=== PATIENT | male | born 1945 | race Caucasian/White ===

== ENCOUNTER 2020-03-30 10:37 | Emergency (ER) | payer OTHER ==
--- NOTE | 2020-03-30 11:40 | RAD REPORT ---
EXAM DESCRIPTION: Chris Single View03/30/2020 11:10 am CLINICAL HISTORY: cough COMPARISON: 2018 FINDINGS: Previously described left upper lobe nodule is not visualized on the current examination The lungs appear clear of acute infiltrate. The heart is normal size IMPRESSION: No acute abnormalities displayed
[2020-03-30 12:18] LABS: Absolute Lymphocytes (CBC) 0.3 K/uL (0.7-4.9); Basophils % 0.2 % (0-1.3); Hematocrit 38.3 % (39.6-49.0); MPV 6.6 fL (7.6-11.3); RBC Red Blood Cell Count 4.35 M/uL (4.33-5.43)
[2020-03-30 12:38] LABS: Urine Blood TRACE (NEG); Urine Glucose 3+ (NEG); Urine Protein NEGATIVE (NEG); Urine Specific Gravity 1.015 (1.005-1.030)
[2020-03-30 12:38] LABS: ALT/SGPT 28 U/L (12-78); AST/SGOT 24 U/L (15-37); Albumin 3.6 g/dL (3.4-5.0); Alkaline Phosphatase 94 U/L (45-117); BUN Blood Urea Nitrogen 15 mg/dL (7-18); Bicarbonate 26 mmol/L (21-32); Bilirubin Direct 0.2 mg/dL (0-0.2); Bilirubin Total 0.7 mg/dL (0.2-1.0); Glucose Level 233 mg/dL (74-106); Magnesium 1.9 mg/dL (1.8-2.4); NT PRO-BNP 212 pg/mL (<125); Potassium 3.9 mmol/L (3.5-5.1); Protein, Total 6.8 g/dL (6.4-8.2); Sodium Level 131 mmol/L (136-145); Troponin (Emerg Dept Use Only) < 0.02 ng/mL (0.0-0.045)
[2020-03-30 12:39] LABS: Blood Morphology Comment NOT SEEN (NOT SEEN); Platelet Estimate ADEQ
--- NOTE | 2020-03-30 13:47 | RAD REPORT ---
EXAM DESCRIPTION: CT - Chest For Pe Angio - 03/30/2020 1:23 pm CLINICAL HISTORY: Chest pain COMPARISON: 2019 TECHNIQUE: Dynamically enhanced axial 3 mm thick images of the chest were obtained during administra tion of <100> mL Isovue 370 IV contrast. Coronal and oblique reconstruction images were generated and reviewed. Exam utilizes a protocol for optimal evaluation of pulmonary arterial tree. Maximum intensity projections 3D imaging was utilized All CT scans are performed using dose optimization technique as appropriate and may include automated exposure control or mA/KV adjustment according to patient size. FINDINGS: A pulmonary embolus is not seen. A thoracic aortic aneurysm is not noted. A pleural effusion is not seen. A pericardial effusion is not seen. A lung consolidation is not present.The left pulmonary nodule has resolved Cholelithiasis without evidence cholecystitis IMPRESSION: Negative for a pulmonary embolism.
--- NOTE | 2020-03-30 13:58 | ER ---
Nurse's Notes [facility] Name: Tomer Thornton Age: 74 yrs Sex: Male : 1945 Arrival Date: 03/30/2020 Time: 10:47 Bed 8 Private MD: Diagnosis: Fever, unspecified;Nausea Presentation: 03/30 11:03 Chief complaint: Patient states: Fever of 100.1 last night, body aches and slight ph nausea, denies cough, SOB or diarrhea, reports that temp this morning was 99.7. Coronavirus screen: Patient denies a cough. Patient denies shortness of breath or difficulty breathing. Patient reports a measured and/or subjective temperature greater than 100.4F. Patient denies travel on a cruise ship or to a country the [facility] currently lists as an affected area. Patient denies contact with known and/or suspected case of COVID-19. Patient instructed to continue to wear a mask when interacting with others. Patient moved to private room, placed in contact and droplet isolation with eye protection until further assessment. Ebola Screen: No symptoms or risks identified at this time. Initial Sepsis Screen: Does the patient meet any 2 criteria? No. Patient's initial sepsis screen is negative. Does the patient have a suspected source of infection? No. Patient's initial sepsis screen is negative. Risk Assessment: Do you want to hurt yourself or someone else? Patient reports no desire to harm self or others. Onset of symptoms was March 30, 2020 at 11:05. 11:03 Method Of Arrival: Ambulatory ph 11:03 Acuity: LUDIN 4 ph Historical: - Allergies: 11:08 No Known Allergies; ph - Home Meds: 11:08 Oxybutynin Chloride Oral [Active]; amlodipine oral [Active]; Omeprazole Oral [Active]; ph atorvastatin oral oral [Active]; - PMHx: 11:08 Hypertension; Hyperlipidemia; GERD; cancer, prostate; lymphoma; ph - PSHx: 11:08 prostate; ph - Immunization history:: Adult Immunizations unknown. - Social history:: Smoking status: Patient denies any tobacco usage or history of. - Family history:: not pertinent. Screenin:09 Abuse screen: Denies threats or abuse. Denies injuries from another. Nutritional ph screening: No deficits noted. Tuberculosis screening: No symptoms or risk factors identified. Fall Risk None identified. Assessment: 11:09 General: Appears in no apparent distress. comfortable, well groomed, Behavior is calm, ph cooperative, appropriate for age, Reports fever for 0-12 hours. Pain: Complains of pain in "body aches". Neuro: Level of Consciousness is awake, alert, obeys commands, Oriented to person, place, time, situation. Cardiovascular: Capillary refill < 3 seconds in bilateral fingers Patient's skin is warm and dry. Respiratory: Airway is patent Respiratory effort is even, unlabored, Respiratory pattern is regular, symmetrical, Denies cough, shortness of breath. GI: Reports nausea, Patient currently denies constipation, cramping, vomiting. Derm: Skin is intact, is healthy with good turgor, Skin is pink, warm \\T\\ dry. Musculoskeletal: Circulation, motion, and sensation intact. Range of motion: intact in all extremities. 12:00 Reassessment: Patient appears in no apparent distress at this time. Patient and/or ph family updated on plan of care and expected duration. Pain level reassessed. Patient is alert, oriented x 3, equal unlabored respirations, skin warm/dry/pink. 13:00 Reassessment: Patient appears in no apparent distress at this time. Patient and/or ph family updated on plan of care and expected duration. Pain level reassessed. Patient is alert, oriented x 3, equal unlabored respirations, skin warm/dry/pink. 14:12 Reassessment: Patient appears in no apparent distress at this time. Patient and/or ph family updated on plan of care and expected duration. Pain level reassessed. Patient is alert, oriented x 3, equal unlabored respirations, skin warm/dry/pink. D/C pending completion of IV fluids and flu swab results, pt provided w/ sandwich and drink, tolerating well. Vital Signs: 11:03 BP 125 / 97; Pulse 78; Resp 18; Temp 98.6(O); Pulse Ox 100% on R/A; ph 12:15 BP 142 / 64; Pulse 61; Resp 18; Pulse Ox 99% on R/A; ph 13:23 BP 133 / 68; Pulse 93; Resp 18; Pulse Ox 98% on R/A; ph 14:30 BP 127 / 86; Pulse 68; Resp 18; Pulse Ox 99% on R/A; ph 15:15 BP 131 / 82; Pulse 71; Resp 18; Temp 98.0; Pulse Ox 99% on R/A; ph ED Course: 10:47 Patient arrived in ED. fj1 10:53 Santi Esparza MD is Attending Physician. ghulam 11:05 Triage completed. ph 11:09 Arm band placed on Patient placed in an exam room, on a stretcher, on pulse oximetry. ph 11:09 Patient has correct armband on for positive identification. Bed in low position. Call ph light in reach. Side rails up X 1. Pulse ox on. NIBP on. Door closed. Noise minimized. Warm blanket given. 11:10 XRAY Chest (1 view) In Process Unspecified. EDMS 11:11 Hannah Borjas, RN is Primary Nurse. ph 12:00 Initial lab(s) drawn, by pr, sent to lab. First set of blood cultures drawn by pr. dh3 Inserted saline lock: 20 gauge in right antecubital area, using aseptic technique. Blood collected. 12:05 Second set of blood cultures drawn by pr. dh3 12:25 EKG done, by ED staff, reviewed by Santi Esparza MD. dh3 12:29 COVID-19 Sent. dh3 13:23 CT Chest For PE Angio In Process Unspecified. EDMS 13:23 CT completed. Patient tolerated procedure well. Patient moved back from CT. bq 13:58 Burton Carrasco MD is Referral Physician. ghulam 15:16 No provider procedures requiring assistance completed. IV discontinued, intact, ph bleeding controlled, No redness/swelling at site. Pressure dressing applied. Administered Medications: 12:32 CANCELLED (Duplicate Order): Zithromax 500 mg IVPB once over 1 hrs; mix in 250 mL NS ghulam 13:45 Drug: NS 0.9% 1000 ml Route: IV; Rate: 1 bolus; Site: right antecubital; ph 15:00 Follow up: Response: No adverse reaction; IV Status: Completed infusion; IV Intake: ph 1000ml 13:45 Drug: Rocephin 1 grams Route: IV; Rate: per protocol; Site: right antecubital; ph 14:00 Follow up: Response: No adverse reaction; IV Status: Completed infusion ph 14:11 Not Given (Other Intervention Used): NS 0.9% 1000 ml IV at 125 ml/hr continuous ph Intake: 15:00 IV: 1000ml; Total: 1000ml. ph Outcome: 13:58 Discharge ordered by . ghulam 15:16 Discharged to home ambulatory. ph 15:16 Condition: good 15:16 Discharge instructions given to patient, Instructed on discharge instructions, follow up and referral plans. medication usage, Demonstrated understanding of instructions, follow-up care, medications, Prescriptions given X 2. 15:16 Patient left the ED. ph Addendum: 04/03/2020 12:59 Addendum: COVID-19 Result: Negative result given to RN to notify pt. Contacted by: Pedro Gupta RN. Notified pt of negative COVID 19 swab results. Pt advised that even with a negative test result they should remain in isolation until symptom free for 3 days without medication. Pt also advised to return to the ED for worsening symptoms. Signatures: Dispatcher [employer] EDMartina Meadows RN RN [id number] Santi Esparza MD MD cha Quilty, Betty bq Hall, Patricia, RN RN Kallie Anderson [facility] William Matos fj1
--- NOTE | 2020-03-30 13:58 | EDPHYS ---
Physician Documentation [facility] Name: Tomer Thornton Age: 74 yrs Sex: Male : 1945 Arrival Date: 03/30/2020 Time: 10:47 Bed 8 Private MD: ED Physician Santi Esparza HPI: 03/30 12:29 This 74 yrs old Male presents to ER via Ambulatory with complaints of COVID ghulam TESTING. 12:29 The patient reports fever, that was measured at 100 degrees Fahrenheit. Onset: The ghulam symptoms/episode began/occurred 1 day(s) ago. Modifying factors: there are no obvious modifying factors. Associated signs and symptoms: Pertinent positives: chills, cough, nausea. Severity of symptoms: At their worst the symptoms were mild in the emergency department the symptoms are unchanged. The patient has not experienced similar symptoms in the past. Historical: - Allergies: 11:08 No Known Allergies; ph - Home Meds: 11:08 Oxybutynin Chloride Oral [Active]; amlodipine oral [Active]; Omeprazole Oral [Active]; ph atorvastatin oral oral [Active]; - PMHx: 11:08 Hypertension; Hyperlipidemia; GERD; cancer, prostate; lymphoma; ph - PSHx: 11:08 prostate; ph - Immunization history:: Adult Immunizations unknown. - Social history:: Smoking status: Patient denies any tobacco usage or history of. - Family history:: not pertinent. ROS: 12:29 Constitutional: Negative for fever, chills, and weight loss, Eyes: Negative for injury, ghulam pain, redness, and discharge, ENT: Negative for injury, pain, and discharge, Neck: Negative for injury, pain, and swelling, Cardiovascular: Negative for chest pain, palpitations, and edema, Back: Negative for injury and pain, : Negative for injury, bleeding, discharge, and swelling, MS/Extremity: Negative for injury and deformity, Skin: Negative for injury, rash, and discoloration, Neuro: Negative for headache, weakness, numbness, tingling, and seizure, Psych: Negative for depression, anxiety, suicide ideation, homicidal ideation, and hallucinations, Allergy/Immunology: Negative for hives, rash, and allergies, Endocrine: Negative for neck swelling, polydipsia, polyuria, polyphagia, and marked weight changes, Hematologic/Lymphatic: Negative for swollen nodes, abnormal bleeding, and unusual bruising. 12:29 Respiratory: Positive for cough. 12:29 Abdomen/GI: Positive for nausea. Exam: 12:29 Constitutional: This is a well developed, well nourished patient who is awake, alert, ghulam and in no acute distress. Head/Face: Normocephalic, atraumatic. Eyes: Pupils equal round and reactive to light, extra-ocular motions intact. Lids and lashes normal. Conjunctiva and sclera are non-icteric and not injected. Cornea within normal limits. Periorbital areas with no swelling, redness, or edema. ENT: Nares patent. No nasal discharge, no septal abnormalities noted. Tympanic membranes are normal and external auditory canals are clear. Oropharynx with no redness, swelling, or masses, exudates, or evidence of obstruction, uvula midline. Mucous membranes moist. Neck: Trachea midline, no thyromegaly or masses palpated, and no cervical lymphadenopathy. Supple, full range of motion without nuchal rigidity, or vertebral point tenderness. No Meningismus. Chest/axilla: Normal chest wall appearance and motion. Nontender with no deformity. No lesions are appreciated. Cardiovascular: Regular rate and rhythm with a normal S1 and S2. No gallops, murmurs, or rubs. Normal PMI, no JVD. No pulse deficits. Respiratory: Lungs have equal breath sounds bilaterally, clear to auscultation and percussion. No rales, rhonchi or wheezes noted. No increased work of breathing, no retractions or nasal flaring. Back: No spinal tenderness. No costovertebral tenderness. Full range of motion. Male : Normal genitalia with no discharge or lesions. Skin: Warm, dry with normal turgor. Normal color with no rashes, no lesions, and no evidence of cellulitis. MS/ Extremity: Pulses equal, no cyanosis. Neurovascular intact. Full, normal range of motion. Neuro: Awake and alert, GCS 15, oriented to person, place, time, and situation. Cranial nerves II-XII grossly intact. Motor strength 5/5 in all extremities. Sensory grossly intact. Cerebellar exam normal. Normal gait. Psych: Awake, alert, with orientation to person, place and time. Behavior, mood, and affect are within normal limits. 12:29 Abdomen/GI: Inspection: abdomen appears normal, Bowel sounds: normal, Palpation: abdomen is soft and non-tender, Liver: no appreciated palpable abnormalities, Hernia: not appreciated. 12:34 ECG was reviewed by the Attending Physician. [facility] Vital Signs: 11:03 BP 125 / 97; Pulse 78; Resp 18; Temp 98.6(O); Pulse Ox 100% on R/A; ph 12:15 BP 142 / 64; Pulse 61; Resp 18; Pulse Ox 99% on R/A; ph 13:23 BP 133 / 68; Pulse 93; Resp 18; Pulse Ox 98% on R/A; ph 14:30 BP 127 / 86; Pulse 68; Resp 18; Pulse Ox 99% on R/A; ph 15:15 BP 131 / 82; Pulse 71; Resp 18; Temp 98.0; Pulse Ox 99% on R/A; ph MDM: 10:53 Patient medically screened. [facility] 12:35 Data reviewed: vital signs, nurses notes, lab test result(s), EKG, radiologic studies, [facility] CT scan, plain films. 13:55 Differential diagnosis: viral Infection, bacterial infection, URI, bronchitis, ghulam pneumonia UTI, gastroenteritis. Data interpreted: ammonia refrigeration technician: rate is 93 beats/min, rhythm is regular, Pulse oximetry: on room air is 98 %. Test interpretation: by ED physician or midlevel provider: ECG, plain radiologic studies. Counseling: I had a detailed discussion with the patient and/or guardian regarding: the historical points, exam findings, and any diagnostic results supporting the discharge/admit diagnosis, lab results, radiology results. ED course: non toxic , well hydrated. 03/30 10:56 Order name: Basic Metabolic Panel; Complete Time: 13:27 [facility] 03/30 10:56 Order name: CBC with Diff; Complete Time: 13:27 [facility] 03/30 10:56 Order name: LFT's; Complete Time: 13:27 [facility] 03/30 10:56 Order name: Magnesium; Complete Time: 13:27 [facility] 03/30 10:56 Order name: NT PRO-BNP; Complete Time: 13:27 [facility] 03/30 10:56 Order name: Troponin (emerg Dept Use Only); Complete Time: 13:27 [facility] 03/30 10:56 Order name: Blood Culture Adult (2) [facility] 03/30 10:56 Order name: Procalcitonin; Complete Time: 13:27 [facility] 03/30 10:56 Order name: Lactate; Complete Time: 13:27 [facility] 03/30 10:56 Order name: COVID-19 [facility] 03/30 10:56 Order name: D-Dimer; Complete Time: 12:25 [facility] 03/30 12:36 Order name: Urine Dipstick--Ancillary (enter results) md 03/30 12:36 Order name: Urine Dipstick-Ancillary; Complete Time: 13:27 [facility] 03/30 12:39 Order name: Manual Differential; Complete Time: 13:27 [facility] 03/30 10:56 Order name: XRAY Chest (1 view); Complete Time: 12:25 [facility] 03/30 10:56 Order name: EKG; Complete Time: 10:57 [facility] 03/30 10:56 Order name: Cardiac monitoring; Complete Time: 11:58 [facility] 03/30 10:56 Order name: EKG - Nurse/Tech; Complete Time: 11:58 [facility] 03/30 10:56 Order name: IV Saline Lock; Complete Time: 12:29 [facility] 03/30 10:56 Order name: Labs collected and sent; Complete Time: 12:30 [facility] 03/30 10:56 Order name: O2 Per Protocol; Complete Time: 11:11 [facility] 03/30 10:56 Order name: O2 Sat Monitoring; Complete Time: 11:11 [facility] 03/30 12:27 Order name: CT Chest For PE Angio; Complete Time: 13:54 [facility] 03/30 13:29 Order name: Flu ghulam EC:34 Rate is 74 beats/min. Rhythm is regular. QRS [place] is Normal. [place] interval is normal. QRS ghulam interval is normal. QT interval is normal. No Q waves. T waves are Normal. No ST changes noted. Clinical impression: Normal ECG and No evidence of ischemia. Interpreted by me. Reviewed by me. Administered Medications: 12:32 CANCELLED (Duplicate Order): Zithromax 500 mg IVPB once over 1 hrs; mix in 250 mL NS [facility] 13:45 Drug: NS 0.9% 1000 ml Route: IV; Rate: 1 bolus; Site: right antecubital; ph 15:00 Follow up: Response: No adverse reaction; IV Status: Completed infusion; IV Intake: ph 1000ml 13:45 Drug: Rocephin 1 grams Route: IV; Rate: per protocol; Site: right antecubital; ph 14:00 Follow up: Response: No adverse reaction; IV Status: Completed infusion ph 14:11 Not Given (Other Intervention Used): NS 0.9% 1000 ml IV at 125 ml/hr continuous ph Disposition: 03/30/20 13:58 Discharged to Home. Impression: Fever, unspecified, Nausea. - Condition is Stable. - Discharge Instructions: Fever, Adult, Nausea and Vomiting, Adult, Nausea, Adult, Fever, Adult, [id number]. - Prescriptions for Zofran 4 mg Oral Tablet - take 1 tablet by ORAL route every 12 hours As needed; 14 tablet. Zithromax Z- Priyank 250 mg Oral Tablet - take 1 tablet by ORAL route as directed for 5 days Day 1 - take two (2) tablets one time. Day 2, 3, 4 , 5 take one (1) tablet once daily.; 6 tablet. - Medication Reconciliation Form, Thank You Letter, Antibiotic Education, Prescription Opioid Use form. - Follow up: Private Physician; When: 2 - 3 days; Reason: Recheck today's complaints, Continuance of care, Re-evaluation by your physician. Follow up: A Carrasco; When: 2 - 3 days; Reason: Recheck today's complaints, Re-evaluation by your physician. - Problem is new. - Symptoms have improved. Signatures: Dispatcher [employer] EDMS Santi Esparza MD MD cha Hall, Patricia RN RN ph Corrections: (The following items were deleted from the chart) 12:32 12:27 Zithromax 500 mg IVPB once over 1 hrs; mix in 250 mL NS ordered. ghulam parmar 15:16 13:58 03/30/2020 13:58 Discharged to Home. Impression: Fever, unspecified; Nausea. ph Condition is Stable. Discharge Instructions: Fever, Adult, Nausea and Vomiting, Adult, Nausea, Adult, Fever, Adult, [id number]. Prescriptions for Zofran 4 mg Oral Tablet - take 1 tablet by ORAL route every 12 hours As needed; 14 tablet, Zithromax Z-Priyank 250 mg Oral Tablet - take 1 tablet by ORAL route as directed for 5 days Day 1 - take two (2) tablets one time. Day 2, 3, 4 , 5 take one (1) tablet once daily.; 6 tablet. and Forms are Medication Reconciliation Form, Thank You Letter, Antibiotic Education, Prescription Opioid Use. Follow up: Private Physician; When: 2 - 3 days; Reason: Recheck today's complaints, Continuance of care, Re-evaluation by your physician. Follow up: Burton Carrasco; When: 2 - 3 days; Reason: Recheck today's complaints, Re-evaluation by your physician. Problem is new. Symptoms have improved. ghulam
[2020-03-30] MEDS ORDERED: NA CHLORIDE 0.9% 1,000 ML ONE (14:07)
[2020-03-30] MEDS ORDERED: CEFTRIAXONE/SWI 1gm 1 GM/10 ML SYR ONE (14:07)
[2020-03-30 15:25] VITALS: O2SAT 99
[2020-03-30 15:26] VITALS: BP 131/82; TEMP 98
--- NOTE | 2020-03-31 08:10 | EKG ---
Test Date: 2020-03-30 Test Time: 12:21:18 Pressurization Mechanic: [place] MEASUREMENT RESULTS: Intervals: Rate: 74 NC: 154 QRSD: 90 QT: 376 QTc: 417 [place]: P: 48 NC: 154 QRS: 22 T: 27 INTERPRETIVE STATEMENTS: Normal sinus rhythm Normal ECG Compared to ECG 10/25/2018 11:03:52 No significant changes Electronically Signed On 03-31-20 08:08:53 CDT by Pilo Loco
== END 2020-03-30 15:16 | disposition home or self-care (01) ==
LOC: ER 10:37
DX: R11.0 Nausea (principal); Z20.828 Contact with and (suspected) exposure to other viral communicable diseases; I10 Essential (primary) hypertension; E78.5 Hyperlipidemia, unspecified; K21.9 Gastro-esophageal reflux disease without esophagitis
CPT/HCPCS: 96361; 93005; 87040 ×2; 85025; 80048; 36415; 83735; 85379; 80076; 83605; 81003; 84484; 84145; 83880; 87804 ×2; 71275; 71045; 96374; 99285; U0001; J0696; J7030